=== PATIENT | female | born 1965 ===

== ENCOUNTER 2018-04-19 08:03 | Day surgery (SDC) | payer OTHER ==
[2018-04-19] MEDS ORDERED: Lidocaine Hydrochloride 5 ML INJ ONE (10:49)
[2018-04-19] MEDS ORDERED: Propofol 10 mg/ml Inj (20 ML) ONE (10:49)
--- NOTE | 2018-04-19 10:49 | CP.SDSHP ---
Same Day Surgery H & P - History Proposed Procedure: EGD Pre-Op Diagnosis: SEE NOTES - Previous Medical/Surgical History Neuro: Other Misc: Other Pain: 4.Moderate Pain - Allergies Allergies: Allergies No Known Allergies Allergy (Verified 04/19/18 08:59) - Physical Exam General Appearance: N Vital Signs: Vital Signs 04/19/18 08:25 Temperature 98.4 F Pulse Rate 72 Respiratory 19 Rate Blood Pressure 125/84 O2 Sat by Pulse 97 Oximetry Mental Status: Alert & Oriented x3 Neuro: WNL Heart: WNL Lungs: WNL GI: Other - {Optional Preform as Required} Breast: WNL Abdomen: Other Rectal: Other Integument: WNL : WNL Ortho: WNL ENT: WNL - Impression Pt. Evaluated Today:Candidate for Anesthesia & Procedure: Yes - Date & Time Time: 10:49 Short Stay Discharge - Short Stay Discharge Admitting Diagnosis/Reason for Visit: DYSPEPSIA Disposition: HOME/ ROUTINE
[2018-04-19 11:20] VITALS: TEMP 98
[2018-04-19 11:56] VITALS: BP 109/74; PULSE 63; RESP 19; O2SAT 95
== END 2018-04-19 12:58 | disposition home or self-care (01) ==
LOC: C.ENDO 08:03
PROVIDERS: ATTEND Specialist
DX: K29.60 Other gastritis without bleeding (principal); B96.81 Helicobacter pylori [H. pylori] as the cause of diseases classified elsewhere; K20.9 Esophagitis, unspecified; K44.9 Diaphragmatic hernia without obstruction or gangrene
CPT/HCPCS: 43239; 88305; 88342; J2704

== ENCOUNTER 2019-01-02 07:59 | Outpatient (CLI) | payer OTHER | END 2019-01-02 08:00 | disposition home or self-care (01) | LOC: C.USIC 07:59 ==